=== PATIENT | male | born 1955 | race Caucasian/White ===

== ENCOUNTER 2018-04-21 11:10 | Inpatient (IN) ==
[2018-04-21] MEDS ORDERED: ALBUTEROL/IPRATROPIUM 3 ML NEB RESP TX STA (12:59)
[2018-04-21] MEDS ORDERED: PIPERACILLIN/TAZOBACTAM 3,375 MG in SODIUM CHLORIDE 0.9% 100 ML IV STA (14:14)
[2018-04-21 14:39] LABS: Basophils # 0.1 10*3/uL (0.0-0.2); Basophils % 0.2 % (0.0-0.8); Hematocrit 43.1 VOL% (42.0-52.0); Hemoglobin 15.1 GM/DL (14.0-18.0); Immature Granulocytes % 0.8 %; Immature Granulocytes Absolute 0.21 #; Lymphocytes # 1.4 10*3/uL (1.4-4.0); Lymphocytes % 5.5 % (21.2-54.2); Mean Corpuscular Hemoglobin 32 PG (27-34); Mean Corpuscular Volume 91.3 FL (87-102); Mean Platelet Volume 10.4 FL (9.6-12.0); Monocytes # 2.2 10*3/uL (0.11-0.8); Monocytes % 8.9 % (1.7-12.7); Neutrophils # 20.9 10*3/uL (1.4-7.4); Neutrophils % 84.6 % (38.7-73.9); Platelet Count 184 T/CUMM (130-400); Red Blood Count 4.72 MC/CUMM (3.8-5.5); Red Cell Distribution Width 12.3 % (9.3-17.3); White Blood Count 24.8 T/CUMM (4-12)
[2018-04-21 14:51] LABS: Albumin 3.4 G/DL (3.4-5.0); Bilirubin,Total 2.1 MG/DL (0.2-1.0); Calcium 8.7 MG/DL (8.5-10.1); Osmolality,Calculated 277.2 MOS/KG (273-304); Potassium 4.6 MMOL/L (3.5-5.1); Total Protein 6.9 G/DL (6.4-8.3)
[2018-04-21] MEDS ORDERED: DEXTROSE 50% 25 GM/50 ML VIAL IV PRN (16:20)
[2018-04-21] MEDS ORDERED: HYDROmorphone 2 MG/1 ML VIAL IV PRN (16:20)
[2018-04-21] MEDS ORDERED: ONDANSETRON 4 MG/2 ML VIAL IV PRN (16:20)
[2018-04-21] MEDS ORDERED: ACETAMINOPHEN 325 MG TABLET PO PRN (16:20)
[2018-04-21] MEDS ORDERED: GLUCAGON 1 MG VIAL IM PRN (16:20)
[2018-04-21 16:25] LABS: Band Neutrophils 10 % (0-10); Lymphocytes 5 % (20-55); Platelet Estimate Adequate; Segmented Neutrophils 78 % (50-85); Total Cells Counted 100
[2018-04-21] MEDS ORDERED: hydrALAZINE 20 MG/1 ML VIAL IV PRN (16:52)
[2018-04-21] MEDS: LACTATED RINGERS 1,000 ML IV SCH (19:14)
[2018-04-21] MEDS: NICOTINE 21 MG/24 HR PATCH TRANSDERM SCH (19:15)
[2018-04-21] MEDS: INSULIN LISPRO 100 UNIT/ML SUBCUT SCH ×2 (19:17→20:50)
[2018-04-21 19:20] LABS: ABG Base Excess 2.1 MMOL/L (-2.5-2.5); ABG HCO3 26.1 MMOL/L (20-26); ABG Oxygen Saturation 91.4 % (95-100); ABG PCO2 37.2 MM HG (35-48); ABG PH 7.449 (7.35-7.45); ABG PO2 57.6 MM HG (80-95)
[2018-04-21] MEDS: ALBUTEROL/IPRATROPIUM 3 ML NEB RESP TX SCH (19:50)
[2018-04-21] MEDS: HYDROCORTISONE 100 MG VIAL IV SCH (20:47)
[2018-04-21] MEDS: GABAPENTIN 300 MG CAPSULE PO SCH (20:51)
[2018-04-21] MEDS: GLIMEPIRIDE 4 MG TABLET PO SCH (20:53)
[2018-04-21] MEDS ORDERED: MOMETASONE/FORMOTEROL 200-5 INHALER 8.8 GM INH SCH (21:00)
[2018-04-21] MEDS: PIPERACILLIN/TAZOBACTAM 3,375 MG in SODIUM CHLORIDE 0.9% 100 ML IV SCH (22:49)
[2018-04-22] MEDS: LACTATED RINGERS 1,000 ML IV SCH ×2 (00:20→08:20)
[2018-04-22] MEDS: ALBUTEROL/IPRATROPIUM 3 ML NEB RESP TX SCH ×4 (00:50→20:02)
[2018-04-22] MEDS: PIPERACILLIN/TAZOBACTAM 3,375 MG in SODIUM CHLORIDE 0.9% 100 ML IV SCH (05:38)
[2018-04-22] MEDS ORDERED: cefOXitin 2,000 MG in SYRINGE 1 EACH IV ONE (06:36)
[2018-04-22 07:24] LABS: Apearance,Urine CLEAR (Clear); Bilirubin,Urine Negative (Negative); Blood, Urine Small mg/dL (Negative); Glucose,Urine (UA) >=500 mg/dL (Negative); Ketones,Urine Negative (Negative); Nitrite,Urine Negative (Negative); Protein,Urine Negative; Squamous Epithelial Cell,Urine Occasional /HPF (0-10); Urine Color Yellow (Yellow); Urine Specific Gravity 1.002 (1.001-1.035); WBC,Urine <1 /HPF (0-6)
[2018-04-22 07:28] LABS: Basophils # 0.1 10*3/uL (0.0-0.2); Basophils % 0.2 % (0.0-0.8); Eosinophils % 0.1 % (0.00-10.9); Hematocrit 41.4 VOL% (42.0-52.0); Hemoglobin 14.4 GM/DL (14.0-18.0); Immature Granulocytes % 1.1 %; Immature Granulocytes Absolute 0.26 #; Lymphocytes # 1.6 10*3/uL (1.4-4.0); Lymphocytes % 6.7 % (21.2-54.2); Mean Corpuscular HGB Conc 34.8 GM/DL (32-36); Mean Corpuscular Hemoglobin 32 PG (27-34); Mean Platelet Volume 10.3 FL (9.6-12.0); Monocytes # 1.8 10*3/uL (0.11-0.8); Monocytes % 7.6 % (1.7-12.7); Neutrophils # 19.6 10*3/uL (1.4-7.4); Neutrophils % 84.3 % (38.7-73.9); Platelet Count 194 T/CUMM (130-400); Red Blood Count 4.45 MC/CUMM (3.8-5.5); Red Cell Distribution Width 12.2 % (9.3-17.3); White Blood Count 23.3 T/CUMM (4-12)
[2018-04-22 08:00] LABS: Albumin 2.9 G/DL (3.4-5.0); Bilirubin,Total 2.2 MG/DL (0.2-1.0); Osmolality,Calculated 277.8 MOS/KG (273-304); Potassium 3.7 MMOL/L (3.5-5.1); Total Protein 7.1 G/DL (6.4-8.3)
[2018-04-22 08:06] LABS: Band Neutrophils 2 % (0-10); Hypochromasia 1+; Lymphocytes 7 % (20-55); Platelet Estimate Adequate; Segmented Neutrophils 85 % (50-85); Total Cells Counted 100
[2018-04-22] MEDS: ENOXAPARIN 40 MG/0.4 ML SYRINGE SUBCUT SCH (08:19)
[2018-04-22] MEDS ORDERED: ACETAMINOPHEN 500 MG TABLET PO ONE (08:24)
[2018-04-22] MEDS ORDERED: DIAZEPAM 5 MG TABLET PO ONE (08:24)
[2018-04-22] MEDS ORDERED: GABAPENTIN 400 MG CAPSULE PO ONE (08:24)
[2018-04-22] MEDS ORDERED: PANTOPRAZOLE 40 MG VIAL IV ONE (08:24)
[2018-04-22] MEDS: HYDROCORTISONE 100 MG VIAL IV SCH ×2 (08:28→17:39)
[2018-04-22] MEDS: INSULIN LISPRO 100 UNIT/ML SUBCUT SCH ×4 (08:29→20:47)
[2018-04-22] MEDS: NICOTINE 21 MG/24 HR PATCH TRANSDERM SCH (09:00)
[2018-04-22] MEDS: GLIMEPIRIDE 4 MG TABLET PO SCH ×2 (09:00→20:51)
[2018-04-22] MEDS ORDERED: NF (Umeclidinium Brm/Vilanterol Tr [Anoro Ellipta] 1 PUFF) INH SCH (09:00)
[2018-04-22] MEDS: MONTELUKAST 10 MG TABLET PO SCH (09:00)
[2018-04-22] MEDS: ASPIRIN EC 81 MG TABLET PO SCH (09:00)
[2018-04-22] MEDS: predniSONE 5 MG TABLET PO SCH (09:00)
[2018-04-22] MEDS: PANTOPRAZOLE 40 MG TABLET PO SCH (09:00)
[2018-04-22] MEDS: amLODIPine 10 MG TABLET PO SCH (09:31)
[2018-04-22] MEDS: VALSARTAN 160 MG TABLET PO SCH (09:32)
[2018-04-22] MEDS ORDERED: LIDOCAINE 1%/EPI INJ 20 ML VIAL ONE (09:35)
[2018-04-22] MEDS ORDERED: BUPIVACAINE MPF 0.25% /EPI 30 ML VIAL ONE (09:35)
[2018-04-22] MEDS ORDERED: TISSUE ADHESIVE 1 EACH APPLICATOR TOP ONE ×2 (10:39→11:51)
[2018-04-22] MEDS ORDERED: ALBUTEROL/IPRATROPIUM 3 ML NEB RESP TX ONE ×2 (12:05→12:06)
[2018-04-22] MEDS ORDERED: ONDANSETRON 4 MG/2 ML VIAL ONE (12:14)
[2018-04-22] MEDS ORDERED: SEVOFLURANE 1 UNIT/15 MINUTE INH ONE (12:14)
[2018-04-22] MEDS ORDERED: fentaNYL 100 MCG/2 ML VIAL ONE ×2 (12:14→12:15)
[2018-04-22] MEDS ORDERED: MIDAZOLAM 2 MG/2 ML VIAL ONE (12:14)
[2018-04-22] MEDS ORDERED: KETOROLAC 30 MG/1 ML VIAL ONE (12:14)
[2018-04-22] MEDS ORDERED: ETOMIDATE 40 MG/20 ML VIAL IV ONE (12:15)
[2018-04-22] MEDS ORDERED: GLYCOPYRROLATE 0.4 MG/2 ML VIAL ONE (12:15)
[2018-04-22] MEDS ORDERED: PHENYLEPHRINE 1 MG/10 ML SYRINGE IV ONE (12:15)
[2018-04-22] MEDS ORDERED: NEOSTIGMINE 10 MG/10 ML VIAL ONE (12:15)
[2018-04-22] MEDS ORDERED: HYDROCORTISONE 100 MG VIAL ONE (12:15)
[2018-04-22] MEDS ORDERED: ROCURONIUM 100 MG/10 ML VIAL IV ONE (12:15)
[2018-04-22] MEDS ORDERED: HYDROmorphone 2 MG/1 ML VIAL IV PRN (12:40)
[2018-04-22] MEDS ORDERED: ONDANSETRON 4 MG/2 ML VIAL IV PRN (12:40)
[2018-04-22] MEDS ORDERED: LACTATED RINGERS 1,000 ML IV ONE (18:18)
[2018-04-22] MEDS: GABAPENTIN 300 MG CAPSULE PO SCH (20:47)
[2018-04-23] MEDS: ALBUTEROL/IPRATROPIUM 3 ML NEB RESP TX SCH ×3 (01:56→15:21)
[2018-04-23] MEDS: HYDROCORTISONE 100 MG VIAL IV SCH (02:18)
[2018-04-23 04:51] LABS: Basophils % 0.2 % (0.0-0.8); Eosinophils % 0.1 % (0.00-10.9); Hematocrit 36.6 VOL% (42.0-52.0); Hemoglobin 12.7 GM/DL (14.0-18.0); Immature Granulocytes % 0.7 %; Lymphocytes # 1.6 10*3/uL (1.4-4.0); Lymphocytes % 10.7 % (21.2-54.2); Mean Corpuscular HGB Conc 34.7 GM/DL (32-36); Mean Corpuscular Hemoglobin 32 PG (27-34); Mean Corpuscular Volume 91.7 FL (87-102); Mean Platelet Volume 10.8 FL (9.6-12.0); Monocytes % 6.7 % (1.7-12.7); Neutrophils # 12.1 10*3/uL (1.4-7.4); Neutrophils % 81.6 % (38.7-73.9); Platelet Count 195 T/CUMM (130-400); Red Blood Count 3.99 MC/CUMM (3.8-5.5); Red Cell Distribution Width 12.4 % (9.3-17.3); White Blood Count 14.9 T/CUMM (4-12)
[2018-04-23] MEDS: LACTATED RINGERS 1,000 ML IV SCH ×2 (04:56)
[2018-04-23 05:14] LABS: Calcium 8.7 MG/DL (8.5-10.1); Osmolality,Calculated 282.7 MOS/KG (273-304); Potassium 3.6 MMOL/L (3.5-5.1)
[2018-04-23] MEDS: INSULIN LISPRO 100 UNIT/ML SUBCUT SCH ×2 (10:24→13:20)
[2018-04-23] MEDS: ENOXAPARIN 40 MG/0.4 ML SYRINGE SUBCUT SCH (10:25)
[2018-04-23] MEDS: GLIMEPIRIDE 4 MG TABLET PO SCH (10:26)
[2018-04-23] MEDS: VALSARTAN 160 MG TABLET PO SCH (10:27)
[2018-04-23] MEDS: ASPIRIN EC 81 MG TABLET PO SCH (10:27)
[2018-04-23] MEDS: MONTELUKAST 10 MG TABLET PO SCH (10:28)
[2018-04-23] MEDS: predniSONE 5 MG TABLET PO SCH (10:28)
[2018-04-23] MEDS: amLODIPine 10 MG TABLET PO SCH (10:28)
[2018-04-23] MEDS: PANTOPRAZOLE 40 MG TABLET PO SCH (10:28)
[2018-04-23] MEDS: NICOTINE 21 MG/24 HR PATCH TRANSDERM SCH (12:01)
[2018-04-23 12:09] VITALS: BP 118/67
== END 2018-04-23 13:50 | disposition home or self-care (01) | DRG 419 ==
LOC: EDUNIT# → EDBD → N.ED 11:10 → N.EDINP 13:52 → N.3E 14:25
PROVIDERS: ADMIT Surgery; ATTEND Surgery
PROC: LAPCHOL (2018-04-22 10:09)